=== PATIENT | male | born 1950 | race Caucasian/White ===

== ENCOUNTER 2018-01-01 14:11 | Inpatient (IN) | payer OTHER, SELFPAY ==
[2018-01-01] VITALS (11 sets, daily range): BP systolic 99–164; BP diastolic 66–98; PULSE 62–120; RESP 14–30; TEMP 36.3–36.6; O2SAT 95–100; BMI 33.1; BMI 30.8
--- NOTE | 2018-01-01 14:27 | ED.RN ---
pt felt fine yesterday, had chemo on saturday. today he is weak, can not walk well on his own, lethargic.
--- NOTE | 2018-01-01 14:34 | EKG12_ITS ---
Test Reason : ADMISSION Blood Pressure : / mmHG Vent. Rate : 093 BPM Atrial Rate : 100 BPM P-R Int : 000 ms QRS Dur : 136 ms QT Int : 408 ms P-R-T Axes : 000 -26 071 degrees QTc Int : 507 ms Atrial fibrillation Non-specific intra-ventricular conduction block Abnormal ECG When compared with ECG of 26-MAR-2015 05:26, Current undetermined rhythm precludes rhythm comparison, needs review Nonspecific T wave abnormality now evident in Lateral leads Confirmed by BARBARA ESTRADA MD ([id number]), scientific editor JESUS RIVERA ([id number] on 01/06/2018 2:08:12 PM Referred By: Confirmed By:BARBARA ESTRADA MD
[2018-01-01] MEDS: 0.9% Normal Saline 1,000 ML 1000 ML IV (14:56)
[2018-01-01] MEDS: Ondansetron 4 MG/2 ML Vial IV ×2 (14:56→15:45)
--- NOTE | 2018-01-01 14:58 | RAD_ITS ---
STUDY: X-RAY CHEST REASON FOR EXAM: Male, 67 years old. Weakness. TECHNIQUE: Single AP portable view of the chest. COMPARISON: None. FINDINGS: A right-sided portacatheter has been placed. The tip is in the midportion of the superior vena cava. EKG electrodes are seen. Mild increased markings at the lung bases suggesting bibasilar atelectasis. There is no demonstrated pleural abnormality. There is moderate cardiac enlargement. Normal mediastinum and [place]. Normal visualized pulmonary arteries. There is atherosclerotic calcification of the aortic arch with tortuosity. There are diffuse degenerative changes of the visualized thoracic spine. Normal visualized ribs, clavicles, and shoulders. There is no demonstrated abnormality of the visualized soft tissue structures of the upper abdomen. RAD/Chest 1 View (Portable) IMPRESSION: Mild increased markings at the lung bases suggestive of bibasilar scarring and/or linear atelectasis. Electronically Signed: Miky Foster MD at 15:21 EDT Tel [phone], Service support ,
[2018-01-01 15:07] LABS: Absolute Lymphocyte Count 1.04 X10^3/ul (0.83-4.51); Absolute Neutrophil Count 3.6 X10^3/uL (2.0-7.7); Basophil# 0.01 X10^3/uL; Basophil% 0.2 % (0-1); Eosinophil# 0.02 X10^3/uL; Eosinophils% 0.4 % (0-5); Lymphocyte # 1.04 X10^3/ul (4.0); Lymphocyte % 21.8 % (19-41); Mean Corp Hgb Conc 33.3 g/gl (32-36); Mean Corpuscular Hgb 29.4 pg (27.0-32.0); Mean Corpuscular Volume 88.2 fL (80-94); Monocyte# 0.13 X10^3/uL; Monocyte% 2.7 % (0-10); Neutrophil # 3.57 X10^3/uL (2.7-7.7); Neutrophil % 74.9 % (47-70); Platelet Count 294 K/mm3 (150-450); RBC Distribution Width CV 17.3 % (11.6-14.6); RBC Distribution Width SD 55.8 fl (35.1-43.9); Red Blood Count 3.74 M/mm3 (4.6-6.2); White Blood Count 4.8 K/mm3 (4.4-11.0)
[2018-01-01 15:10] LABS: POSITIVE COUNT NO; POSITIVE DIFFERENTIAL NO; POSITIVE MORPHOLOGY NO
[2018-01-01 15:29] LABS: ALB/GLOB Ratio 0.6 RATIO (0.9-2.4); AST(SGOT) 99 U/L (15-37); Alanine Aminotransfer ALT/SGPT 73 U/L (16-61); Albumin, Serum 2.8 g/dL (3.2-5.0); Alkaline Phosphatase 793 U/L (45-117); Anion Gap 17 (5-15); BUN 36 mg/dL (7-18); BUN/Creat Ratio 19.4 RATIO (10-20); Calcium,Total 9.5 mg/dL (8.5-10.1); Chloride 97 mmol/L (98-107); Creatinine, Serum 1.86 mg/dL (0.70-1.30); EST Glomerular Filtration Rate 39 mL/min (>60); Est Glom Filt Rate - Afr Amer 47 mL/min (>60); Globulin 4.7 g/dL (2.2-4.2); Glucose 98 mg/dL (74-106); Potassium 4.3 mmol/L (3.5-5.1); Protein, Total 7.5 g/dL (6.4-8.2); Sodium Level 137 mmol/L (136-145)
[2018-01-01] MEDS: Morphine 4 MG/ML Syringe IV (15:44)
[2018-01-01] MEDS: Metoprolol Tartrate 5 MG/5 ML Vial IV ×2 (16:17→16:32)
--- NOTE | 2018-01-01 16:29 | HP.PCM_ITS ---
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 (6) PRINCE (acute kidney injury) Status: Acute (7) Nausea & vomiting Status: Acute Qualifiers: Vomiting type: unspecified Vomiting Intractability: intractable Qualified Code(s): R11.2 - Nausea with vomiting, unspecified (8) Diarrhea Status: Acute Qualifiers: Diarrhea type: unspecified type Qualified Code(s): R19.7 - Diarrhea, unspecified History of Present Illness Date of Admission: 01/01/18 Chief Complaint: Nausea, vomiting, diarrhea - 2 days The patient is a 67 year old M with past medical history of metastatic distal esophageal cancer, with metastases to liver, nodes, bones, diagnosed in 2017, follows with oncology in the [facility] system. He had an ERCP with biliary stent for obstructive jaundice on December 03, 2017. Last had chemotherapy on 12/30/17, hypertension, paroxysmal atrial fibrillation on Xarelto comes with nausea, vomiting and diarrhea that began this morning. Since his last chemotherapy on 12/30/2017, patient was apparently in his usual state of health until this morning when he has had persistent nausea and has vomited more than 6 times associated with diarrhea which is 2 times today. Stools are watery but nonbloody, no melena or hematochezia. He admits to feeling weak, denies chest pain or shortness of breath or dizziness or palpitations. Vitals in the ED showed temperature of 90 7.3F, heart rate of 62, blood pressure initially was 164/85, later was 110/78, respiratory rate of 18, SPO2 of 99% on room air. Chest x-ray was significant for increased markings at lung bases suggestive of bibasilar scarring or atelectasis. 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 (Chronic) CKD (chronic kidney disease) (Chronic) CYNDEE on CPAP (Chronic) Afib (Chronic) HTN (hypertension) (Chronic) Allergies acetaminophen [From Percocet] Adverse Reaction (Verified 01/01/18 14:16) Other oxycodone HCl [From Percocet] Adverse Reaction (Verified 01/01/18 14:16) Other Home Medications: Ambulatory Orders Medication Instructions Recorded Metoprolol Tartrate [Lopressor 50 mg PO BID 03/25/15 (beta mateusz)] ALPRAZolam [Xanax] 0.25 mg PO BID PRN PRN 01/01/18 Amlodipine [Norvasc] 2.5 mg PO DAILY 01/01/18 Dabigatran Etexilate Mesylate 150 mg PO BID@0600,1800 01/01/18 [Pradaxa] Diazepam [Valium] 5 mg PO QHS 01/01/18 Esomeprazole Mag Trihydrate 40 mg PO DAILY 01/01/18 [Nexium] Furosemide 40 mg PO DAILY 01/01/18 Potassium Chloride [Klor-Con 8 meq PO DAILY 01/01/18 Sprinkle] Prochlorperazine Maleate 10 mg PO Q6H PRN PRN 01/01/18 [Compazine] Spironolactone [Aldactone] 25 mg PO DAILY 01/01/18 Surgical History: total knee arthroplasty - left, - - right knee replaced on , quadracepts tendon repair, pilonidal cyst Psychiatric History: No pertinent psych hx Lives: With Family Smoking Status: Former smoker Tobacco Use: Non-smoker Alcohol: None Drugs: None - *Family History Maternal History Items: Heart Disease - heart failure Sibling History Items: - - brother with heart conditions Paternal History Items: Cancer - unspecified Review of Systems Constitutional: Denies: Anorexia, Chills, Fever, Night Sweats, Weight Change Eyes: Denies: Blurred vision, Cataracts, Conjunctivae Inflammation, Pain, Redness HEENT: Denies: Difficulty Hearing, Difficulty Swallowing, Head Aches, Hearing Changes, Sinus Congestion, Sinus Drainage Cardiovascular: Denies: Chest Pain, Claudication, Chest Pressure, Chest Tightness, Orthopnea, Palpitations, Paroxysmal Noc. Dyspnea Respiratory: Denies: Cough, Hemoptysis, Pleuritic Pain, Shortness of breath at rest, Shortness of breath upon exertion, Sputum production Gastrointestinal: Reports: Diarrhea, Nausea, Vomiting. Denies: Abdominal Pain, Constipation, Hematemesis, Hematochezia Genitourinary: Denies: Dysuria, Frequency, Hematuria, Incontinence, Nocturia Musculoskeletal: Denies: Arm Pain, Back Pain, Joint Pain, Joint stiffness, Joint swelling, Joint Tenderness Skin: Denies: Dryness, Rash, Skin Changes, Wounds Neurological: Denies: Numbness, Tingling, Focal weakness Psychiatric: Denies: Anxiety, Depression, Homicidal Ideations, Suicidal Ideations Endocrine: Denies: Change in Body Habitus Hematologic/ Lymphatic: Denies: Easy Bruising, Easy Bleeding VTE Information - Inpt Only VTE Present on Admission: No VTE Pharm Prophylaxis ordered?: Yes Patient Problems: Active and Suspected Problems PRINCE (acute kidney injury) (Acute) Nausea & vomiting (Acute) Diarrhea (Acute) - Physical Exam General: Alert, Oriented x3, Cooperative, Lethargic HEENT: Atraumatic, PERRLA, EOMI, Normocephalic Oral: Moist Mucosa Neck: Supple Lungs: Clear to auscultation, Normal air movement Cardiovascular: Regular rate, Regular Rhythm, Normal S1, Normal S2, No murmurs Abdomen: Bowel Sounds Present, Soft, Non Tender, Non-Distended, No Hepato- splenomegaly Extremities: No edema Skin: No rashes Musculoskeletal: No Tenderness to Palpation of Joints or Extremities Lymphatic: No Cervical, Supraclavicular, or Inguinal Adenopathy Neurological: Cranial nerves II-XII grossly intact, Neuro grossly intact, - - restless legs Psych/Mental Status: Normal Affect, Appropriate Vital Signs Temp Pulse Resp BP Pulse Ox 97.3 F L 120 H 18 110/78 99 01/01/18 14:12 01/01/18 16:16 01/01/18 16:16 01/01/18 16:16 01/01/18 16:16 Oxygen Delivery Method Room Air Weight: 104.78 kg Body Mass Index (BMI) 33.1 Laboratory Tests Past 24 Hrs 01/01/18 01/01/18 14:52 14:52 WBC 4.8 RBC 3.74 L Hgb 11.0 L Hct 33.0 L MCV 88.2 MCH 29.4 MCHC 33.3 RDW 17.3 H RDW Differential 55.8 H Plt Count 294 MPV 9.0 Immature Gran % (Auto) 0.000 Neut % (Auto) 74.9 H Lymph % (Auto) 21.8 [place] % (Auto) 2.7 Eos % (Auto) 0.4 Baso % (Auto) 0.2 Absolute Neuts (auto) 3.6 Absolute Lymphs (auto) 1.04 Total Counted Not Reportable Sodium 137 Potassium 4.3 Chloride 97 L Carbon Dioxide 23.0 Anion Gap 17 H BUN 36 H Creatinine 1.86 H Estim Creat Clear Calc 38.70 Est GFR (MDRD) Af Amer 47 L Est GFR (MDRD) Non-Af 39 L BUN/Creatinine Ratio 19.4 Glucose 98 Calcium 9.5 Total Bilirubin 3.20 H AST 99 H ALT 73 H Alkaline Phosphatase 793 H Troponin I 0.043 Total Protein 7.5 Albumin 2.8 L Globulin 4.7 H Albumin/Globulin Ratio 0.6 L Assessment/Plan All Active Problems PRINCE (acute kidney injury) (Acute) Nausea & vomiting (Acute) Diarrhea (Acute) Infection of total right knee replacement (Acute) 67 year old M with past medical history of metastatic distal esophageal cancer, with metastases to liver, nodes, bones, diagnosed in 2017, follows with oncology in the [facility] system. He had an ERCP with biliary stent for obstructive jaundice on December 03, 2017. Last had chemotherapy on 12/30/17. History of hypertension, paroxysmal atrial fibrillation on Xarelto comes with nausea, vomiting and diarrhea that began this morning. 1. Nausea, vomiting, diarrhea, acute, started 01/01/18, likely related to recent chemotherapy 3 days ago, patient's vitals are stable, no leukocytosis. He has had 2 episodes of diarrhea so far prior to admission. Plan: Admit to PCU, monitor on telemetry, managed symptomatically, IV fluids, as needed Zofran. If diarrhea persists, would have to workup for infectious etiology 2. Chronic atrial fibrillation, heart rate is variable, on metoprolol and Xarelto, will get an EKG, monitor vitals on telemetry 3. Acute kidney injury on CKD, baseline creatinine 1.13, admitting creatinine is 1.86, will continue on IV fluids, repeat BMP in a.m. 4. Hypertension, controlled, continue home metoprolol and spironolactone, will monitor vitals closely. 5. Obstructive jaundice status post biliary stent, status post ERCP in November 2017 , liver profile appears improved compared to previous record, will get records from [facility], will trend liver function. 6. Metastatic esophageal CA, following with oncology in [facility]. 7. DVT PPx - on Xarelto. 8. Code status - Full code. Discussed in details about the different CODE STATUS-full code, DNR CCA and DNR CC. His son, Jp Hernandez, states he is the HCPOA and has a paperwork, will bring it in. Patient agreed to be full code and the son says is what he has also said in the past and they will decide when the time comes if he should be on machines or not. Time spent discussing with patient and family: 17 mins Code Visit Inpatient E&M: 42800 Init Hosp L3 Procedures: 09932 Advncd Care Plan 30 Min
[2018-01-01] MEDS: LORazepam 2 MG/ML Syringe 1 MG IV (16:32)
--- NOTE | 2018-01-01 17:47 | EKG12_ITS ---
Test Reason : GENERAL ILLNESS Blood Pressure : / mmHG Vent. Rate : 092 BPM Atrial Rate : 044 BPM P-R Int : 000 ms QRS Dur : 118 ms QT Int : 386 ms P-R-T Axes : 000 -21 040 degrees QTc Int : 477 ms Atrial fibrillation Inferior infarct , age undetermined Abnormal ECG Confirmed by NATALIE BILL, BARBARA ([id number]), greeting card editor JESUS RIVERA ([id number]) on 01/07/2018 2:50:02 PM Referred By: MANPREET Confirmed By:BARBARA ESTRADA MD
[2018-01-01] MEDS: 0.9% Normal Saline 1,000 ML 100 ML IV (18:36)
--- NOTE | 2018-01-01 20:14 | CPS ---
Patient resting at this time SMI is at bedside.
[2018-01-01] MEDS: Metoprolol Tartrate 50 MG Tablet PO (23:07)
[2018-01-01] MEDS: Dabigatran Etexilate Mesylate 150 MG Capsule PO (23:07)
[2018-01-02 03:00] VITALS: PULSE 105
[2018-01-02] MEDS: 0.9% Normal Saline 1,000 ML 100 ML IV (04:02)
[2018-01-02 04:55] VITALS: BP 118/71; PULSE 91; RESP 16; TEMP 36.6; O2SAT 100
[2018-01-02 06:44] VITALS: PULSE 87
[2018-01-02 09:35] VITALS: BP 118/68; PULSE 66; RESP 18; TEMP 36.9; O2SAT 100
[2018-01-02 09:39] VITALS: BP 188/68; PULSE 66
[2018-01-02] MEDS: Spironolactone 25 MG Tablet PO (09:39)
[2018-01-02] MEDS: Metoprolol Tartrate 50 MG Tablet PO (09:39)
[2018-01-02] MEDS: Dabigatran Etexilate Mesylate 150 MG Capsule PO (09:42)
--- NOTE | 2018-01-02 09:58 | DCINST_ITS ---
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 (Chronic) PRINCE (acute kidney injury) (Acute) Nausea & vomiting (Acute) Diarrhea (Acute) You will use the following diet at home:: No restrictions Your food should be the consistency of: Regular Your liquids should be the consistency of: Regular/Thin Discharge Activity: Return to Normal Activity Weight Bearing Status: Full weight bearing Allergies/Adverse Reactions: Allergies acetaminophen [From Percocet] Adverse Reaction (Verified 01/01/18 14:16) Other oxycodone HCl [From Percocet] Adverse Reaction (Verified 01/01/18 14:16) Other Medications to take at Discharge Metoprolol Tartrate [Lopressor (beta mateusz)] 50 mg PO BID 03/25/15 ALPRAZolam [Xanax] 0.25 mg PO BID PRN PRN 01/01/18 Amlodipine [Norvasc] 2.5 mg PO DAILY 01/01/18 Dabigatran Etexilate Mesylate [Pradaxa] 150 mg PO BID@0600,1800 01/01/18 Diazepam [Valium] 5 mg PO QHS 01/01/18 Esomeprazole Mag Trihydrate [Nexium] 40 mg PO DAILY 01/01/18 Furosemide 40 mg PO DAILY 01/01/18 Potassium Chloride [Klor-Con Sprinkle] 8 meq PO DAILY 01/01/18 Prochlorperazine Maleate [Compazine] 10 mg PO Q6H PRN PRN 01/01/18 Spironolactone [Aldactone] 25 mg PO DAILY 01/01/18 Primary Care Physician: Antonio Kc MD [Primary Care Provider] - Please follow up with your Primary Care Physician in: as scheduled Test Results: Test results from this visit will be discussed in further detail at your follow- up appointment, if applicable.
--- NOTE | 2018-01-02 11:01 | ED.VISSUMM ---
- ER Visit Summary Date of Service: 01/02/18 Chief Complaint: Weakness History of Present Illness: The patient is a [address] Collins and Dr. Molina. He has a history of esophageal cancer with metastases to the liver. He reports that he is on chemotherapy and his last treatment was 2 days ago. Since that time he has had nausea and vomiting. He vomited 5 times yesterday and 2 times today. He is also having diarrhea. He complains of generalized weakness that began at 10:00 last night. Patient denies any fever, chills, sore throat, cough, chest pain, shortness of breath, abdominal pain, dysuria or frequency, headache, or rash. Physical Examination: Vitals: Stable. Afebrile. General: Well-nourished and well-developed. Head: Normocephalic atraumatic. Neck: Supple, no lymphadenopathy. No JVD. Nontender. Cardiovascular: Regular rate and rhythm. 2 out of 6 systolic murmur. Respiratory: No respiratory distress. Clear to auscultation bilaterally. Abdominal: Soft, nontender, nondistended, normal bowel sounds. No guarding, rebound, or peritoneal signs. Back: Nontender. Extremities: Nontender, 1+ pitting edema lower extremities bilaterally. Chronic venous stasis changes. Skin: Normal color, no rash. Neurologic: Alert and oriented ?3. Cranial nerves II through XII are intact. Normal strength and sensation. Psych: Normal affect. Test Results: EKG is A. fib at [address]pecific [address] changes. Sent essentially unchanged from March 2015. Troponin 0 0.043. LFTs marked for an albumin of 2.8, globulin 4.7, total bili 3.2, alk phos of 793, ALT is 73, AST of 99. Chem-7 is more for chloride of 97, BUN of 36, creatinine 1.86. CBC is marked for an H&H 11.0/33.0 and 7 neutrophils 75. Chest x-ray shows atelectasis. Emergency Department Course and Treatment: Patient went into A. fib RVR while here with heart rates in the 120s. He has been able to keep down his home Lopressor. He was given Lopressor IV. He was also given dose of morphine and Zofran IV. Reviewing his records it appears that he had an ERCP with biliary stent placement for obstructive jaundice at [facility] on December 03 of this year. Treatment Plan: Patient was discussed with Dr. Greer was able to speak with the surgeon at [facility]. Patient's total bili has never been less than 2.5. On repeat exam the patient has no right upper quadrant pain. This time that is felt that there is not a problem with the biliary stent. Patient was discussed with Dr. Sumner and will be admitted for hydration and further evaluation. Disposition: Admitted in improved condition. Impression: 1. Vomiting/diarrhea. 2. Generalized weakness. 3. Esophageal cancer with metastases on chemotherapy. 4. Atrial fibrillation with RVR. 5. PVCs. 6. Elevated bilirubin. 7. Coagulopathy on Pradaxa. 8. Critical care time 30 minutes. This note was generated with [employer] dictation software. It may contain incorrect words, spelling, and punctuation that were not noted in review of the chart prior to signing ED Disposition - Plan for ED Patient: Disposition: Acute Care Hospital [facility] Chief Complaint: General Illness
--- NOTE | 2018-01-02 11:04 | ED.DCSUM_ITS ---
- ER Visit Summary Date of Service: 01/02/18 Chief Complaint: Weakness History of Present Illness: The patient is a [address] Collins and Dr. Molina. He has a history of esophageal cancer with metastases to the liver. He reports that he is on chemotherapy and his last treatment was 2 days ago. Since that time he has had nausea and vomiting. He vomited 5 times yesterday and 2 times today. He is also having diarrhea. He complains of generalized weakness that began at 10:00 last night. Patient denies any fever, chills, sore throat, cough, chest pain, shortness of breath, abdominal pain, dysuria or frequency, headache, or rash. Physical Examination: Vitals: Stable. Afebrile. General: Well-nourished and well-developed. Head: Normocephalic atraumatic. Neck: Supple, no lymphadenopathy. No JVD. Nontender. Cardiovascular: Regular rate and rhythm. 2 out of 6 systolic murmur. Respiratory: No respiratory distress. Clear to auscultation bilaterally. Abdominal: Soft, nontender, nondistended, normal bowel sounds. No guarding, rebound, or peritoneal signs. Back: Nontender. Extremities: Nontender, 1+ pitting edema lower extremities bilaterally. Chronic venous stasis changes. Skin: Normal color, no rash. Neurologic: Alert and oriented ?3. Cranial nerves II through XII are intact. Normal strength and sensation. Psych: Normal affect. Test Results: EKG is A. fib at [address] with PVCs and nonspecific ST changes. Sent essentially unchanged from March 2015. Troponin 0 0.043. LFTs marked for an albumin of 2.8, globulin 4.7, total bili 3.2, alk phos of 793, ALT is 73, AST of 99. Chem-7 is more for chloride of 97, BUN of 36, creatinine 1.86. CBC is marked for an H&H 11.0/33.0 and 7 neutrophils 75. Chest x-ray shows atelectasis. Emergency Department Course and Treatment: Patient went into A. fib RVR while here with heart rates in the 120s. He has been able to keep down his home Lopressor. He was given Lopressor IV. He was also given dose of morphine and Zofran IV. Reviewing his records it appears that he had an ERCP with biliary stent placement for obstructive jaundice at [facility] on December 03 of this year. Treatment Plan: Patient was discussed with Dr. Greer was able to speak with the surgeon at [facility]. Patient's total bili has never been less than 2.5. On repeat exam the patient has no right upper quadrant pain. This time that is felt that there is not a problem with the biliary stent. Patient was discussed with Dr. Sumner and will be admitted for hydration and further evaluation. Disposition: Admitted in improved condition. Impression: 1. Vomiting/diarrhea. 2. Generalized weakness. 3. Esophageal cancer with metastases on chemotherapy. 4. Atrial fibrillation with RVR. 5. PVCs. 6. Elevated bilirubin. 7. Coagulopathy on Pradaxa. 8. Critical care time 30 minutes. This note was generated with [employer] dictation software. It may contain incorrect words, spelling, and punctuation that were not noted in review of the chart prior to signing ED Disposition - Plan for ED Patient: Disposition: Acute Care Hospital [facility] Chief Complaint: General Illness
--- NOTE | 2018-01-02 11:31 | CM.ED ---
Addendum entered by Jessica Almeida 01/02/18 12:17: Patient states he uses a hired taxi to get to doctor appointments. He states he usually has one of his children accompany him. Original Note: Addendum entered by Jessica M Elle 01/02/18 11:37: Discussed palliative care with patient and son. Brochure given to son. He states they will discuss with patient's doctor and other family. Original Note: CM INITIAL ASSESSMENT: Patient's son is at bedside and assists with interview questions. Home: Patient lives in a two story home with his son. He has first floor setup with no steps into the home. HHS/Aides: Denies. DME: Denies using DME. Home Oxygen: Denies. Pharmacy: [facility] in [place]. Advance Directives: Yes, not on file here. Medical POA is Jp Hernandez, patient's son. PCP: Beckie Collins Specialists: Dr. Dukes (oncology), unsure of kidney specialist. DC Plan: Home, with family. No needs identified at this time. CM will continue to follow for safe and effective discharge planning.
[2018-01-02] MEDS: 0.9% NaCl Peripheral Flush Adult/Peds IV (12:16)
--- NOTE | 2018-01-02 15:40 | PCM.DC.SUM ---
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 Patient also complained of generalized weakness. Evaluation in the emergency room included an EKG which showed atrial fibrillation which was a chronic rhythm for the patient, liver function tests were abnormal with an elevated bilirubin and alkaline phosphatase AST and ALT. Patient's BUN and creatinine were elevated but the patient appears to have a chronically elevated creatinine. Patient was given IV Lopressor in the emergency room for an increased heart rate, it appeared that the patient underwent a biliary stent placement December 03 of this year due to obstructive jaundice, patient's surgeon at [facility] was contacted and confirmed that the patient's bilirubin had never been last in 2.5. Hospitalist service was contacted to admit the patient for dehydration, patient was admitted to PCU and given IV fluids and his heart rate was monitored. The following morning, patient stated that he felt back to normal and he was not having any more vomiting, nausea, vomiting or diarrhea. Patient requested discharge to home and I felt he was stable at the time of my examination to discharge the patient home. Patient was seen and examined on 01/02/18 and felt to be in stable condition for discharge home Discharge Activity: Return to Normal Activity Weight Bearing Status: Full weight bearing Home Medications: Medications to take at Discharge Metoprolol Tartrate [Lopressor (beta mateusz)] 50 mg PO BID 03/25/15 ALPRAZolam [Xanax] 0.25 mg PO BID PRN PRN 01/01/18 Amlodipine [Norvasc] 2.5 mg PO DAILY 01/01/18 Dabigatran Etexilate Mesylate [Pradaxa] 150 mg PO BID@0600,1800 01/01/18 Diazepam [Valium] 5 mg PO QHS 01/01/18 Esomeprazole Mag Trihydrate [Nexium] 40 mg PO DAILY 01/01/18 Furosemide 40 mg PO DAILY 01/01/18 Potassium Chloride [Klor-Con Sprinkle] 8 meq PO DAILY 01/01/18 Prochlorperazine Maleate [Compazine] 10 mg PO Q6H PRN PRN 01/01/18 Spironolactone [Aldactone] 25 mg PO DAILY 01/01/18 Primary Care Physician: Antonio Kc MD [NON-STAFF] - Please follow up with your Primary Care Physician in: as scheduled Disposition: Home Minutes spent on discharge:: 32 Patient Condition:: Stable Medical Necessity - Tobacco Use Smoking Status: Former smoker Tobacco Use: Non-smoker Meaningful Use Info Meaningful Use Diagnoses (Choose all that apply): None applicable Code Visit Inpatient E&M: 95511 Disch Hosp
== END 2018-01-02 12:00 | disposition home or self-care (01) | DRG 393 ==
LOC: ED 15:04 → PCU 16:43
PROVIDERS: Admitting Provider Internal Medicine; Emergency Provider Emergency Medicine; Visit Provider Internal Medicine
DX: K52.1 Toxic gastroenteritis and colitis (principal); K83.1 Obstruction of bile duct; C15.9 Malignant neoplasm of esophagus, unspecified; C78.7 Secondary malignant neoplasm of liver and intrahepatic bile duct; N17.9 Acute kidney failure, unspecified; R11.2 Nausea with vomiting, unspecified; T45.1X5A Adverse effect of antineoplastic and immunosuppressive drugs, initial encounter; I48.2 Chronic atrial fibrillation; I12.9 Hypertensive chronic kidney disease with stage 1 through stage 4 chronic kidney disease, or unspecified chronic kidney disease; N18.3 Chronic kidney disease, stage 3 (moderate); G47.33 Obstructive sleep apnea (adult) (pediatric); E86.0 Dehydration
CPT/HCPCS: 36591; 71045; 80053; 84484; 85025; 93005; 99282; J7030; A4216; J2405